=== PATIENT | male | born 1935 | race Two or more races ===

== ENCOUNTER 2021-05-06 11:15 | Day surgery (SDC) | payer MEDICARE ==
[~2021-05-06] VITALS: Ht 172.7 cm; Wt 86.4 kg
[2021-05-06] MEDS ORDERED: SODIUM CHLORIDE 0.9% 1,000 ML IV SCH (12:00)
[2021-05-06] MEDS ORDERED: GLIP5TAB10 PO (12:12)
[2021-05-06] MEDS ORDERED: CARB1TAB44 PO (12:12)
[2021-05-06] MEDS ORDERED: TRIA1TAB3 PO (12:12)
[2021-05-06] MEDS ORDERED: SIMV20TA19 PO (12:12)
[2021-05-06] MEDS ORDERED: METF750T42 PO (12:12)
[2021-05-06] MEDS ORDERED: WARF2.5T32 PO (12:12)
[2021-05-06] MEDS ORDERED: WARF-36 PO (12:12)
[2021-05-06] MEDS ORDERED: PANT40TA6 PO (12:12)
[2021-05-06] MEDS ORDERED: TAMS-11 PO (12:12)
[2021-05-06] MEDS ORDERED: VALS320T2 PO (12:12)
[2021-05-06] MEDS ORDERED: MIDAZOLAM 1 MG/ML, 5ML ONE (12:22)
[2021-05-06] MEDS ORDERED: CEFAZOLIN 1,000 MG ONE (12:22)
[2021-05-06] MEDS ORDERED: FENTANYL PF 100 MCG/2ML ONE (12:22)
[2021-05-06] MEDS ORDERED: LIDOCAINE 2%, 20ML ONE (12:22)
[2021-05-06 12:23] VITALS: BP 170/93
[2021-05-06] MEDS ORDERED: CEFAZOLIN PMX 1GM/50ML 50 ML ONE (12:23)
[2021-05-06 12:24] LABS: BASOPHILS % (AUTO) 1 % (0-1); EOSINOPHILS % (AUTO) 2 % (1-7); LYMPHOCYTES % (AUTO) 23 % (22-44); MEAN CORPUSCULAR HEMOGLOBIN 30.3 pg (27.5-34.5); MEAN CORPUSCULAR HGB CONC 33.9 g/dL (33.2-36.2); MEAN PLATELET VOLUME 8.4 fL (7.4-10.4); MONOCYTES % (AUTO) 9 % (2-9); NEUTROPHILS % (AUTO) 67 % (42-75); PLATELET COUNT 175 x10^3/uL (130-400); RED BLOOD COUNT 4.86 x10^6/uL (4.38-5.82); RED CELL DISTRIBUTION WIDTH 14.3 % (9.4-14.8)
[2021-05-06 12:34] LABS: ANION GAP 7 mmol/L (5-15); CALCIUM 8.9 mg/dL (8.5-10.1); CHLORIDE 109 mmol/L (98-107); CREATININE 1.42 mg/dL (0.7-1.3)
[2021-05-06 12:43] LABS: INTERNATIONAL NORMALIZED RATIO 1.97 (0.93-1.1); PROTHROMBIN TIME 20.8 Seconds (9.6-11.5)
== END 2021-05-06 15:27 | disposition home or self-care (01) ==
LOC: CACL 11:15
PROVIDERS: ATTEND Internal Medicine Cardiovascular Disease
DX: Z45.010 Encounter for checking and testing of cardiac pacemaker pulse generator [battery] (principal); I48.20 Chronic atrial fibrillation, unspecified; G20 Parkinson's disease; E11.22 Type 2 diabetes mellitus with diabetic chronic kidney disease; I12.9 Hypertensive chronic kidney disease with stage 1 through stage 4 chronic kidney disease, or unspecified chronic kidney disease; N18.30 Chronic kidney disease, stage 3 unspecified; Z79.01 Long term (current) use of anticoagulants; Z79.84 Long term (current) use of oral hypoglycemic drugs; Z79.899 Other long term (current) drug therapy
CPT/HCPCS: 33227; 36415; 80048; 85025; 85610; 99156; C1786; J0690; J2250; J3010